=== PATIENT | female | born 1950 | race African-American/Black ===

== ENCOUNTER 2018-09-27 09:37 | Inpatient (IN) | payer BC, MEDICAID ==
[~2018-09-27] VITALS: Ht 160 cm; Wt 85.9 kg
[2018-09-27] MEDS ORDERED: SODIUM CHLORIDE 0.9% 1,000 ML IV ONE (11:11)
[2018-09-27] MEDS ORDERED: ONDANSETRON HCL 4MG/2ML INJ IV STA (11:11)
[2018-09-27] MEDS ORDERED: MORPHINE SULFATE 4 MG/ML CPJ (NOT FOR IM USE) IV STA (11:11)
[2018-09-27 13:06] LABS: CLARITY URINE CLOUDY (CLEAR); COLOR URINE ORANGE (YELLOW); KETONES URINE 1+ (NEGATIVE); LEUKOCYTE ESTERASE URINE 2+ (NEGATIVE); NITRITE URINE POSITIVE (NEGATIVE); OCCULT BLOOD URINE NEGATIVE (NEGATIVE); PH URINE 5.5 (4.5-8.0); PROTEIN URINE 1+ (NEGATIVE); SPECIFIC GRAVITY URINE 1.026 (1.005-1.030)
[2018-09-27 13:34] LABS: BASOPHILS % 0.5 % (0.0-2.0); EOSINOPHILS % 0.1 % (0.0-5.0); HEMATOCRIT. 38.7 % (36.0-48.0); HEMOGLOBIN. 12.8 g/dL (12.0-16.0); LYMPHOCYTES % 7.7 % (20.0-50.0); MEAN CORPUSCULAR HEMOGLOBIN 27.5 pg (28.0-32.0); MEAN CORPUSCULAR VOLUME 82.9 fL (81.0-99.0); MONOCYTES % 8.3 % (2.0-8.0); NEUTROPHILS % 83.4 % (40.0-76.0); PLATELET 232 x1000/uL (130-400); RED BLOOD CELL COUNT 4.67 mill/uL (4.2-5.4); RED CELL DISTRIBUTION WIDTH 15.4 % (11.6-14.6)
[2018-09-27 13:41] LABS: CHLORIDE 101 mEq/L (98-107)
[2018-09-27 13:42] LABS: INR 1.2; PROTHROMBIN TIME 12.2 sec (9.1-11.1)
[2018-09-27] MEDS ORDERED: KETOROLAC 15MG/ML VIAL IV ONE (13:45)
[2018-09-27] MEDS ORDERED: IOHEXOL-300 100 ML BOTTLE ONE (14:46)
[2018-09-27] MEDS ORDERED: METRONIDAZOLE 500 MG PREMIX 100 ML IV ONE (17:30)
[2018-09-27] MEDS ORDERED: PIPERACILLIN SODIUM/TAZOBACTAM 4.5 G in DEXT 5% WATER 100 ML IV SCH (17:30)
[2018-09-28] VITALS (7 sets, daily range): BP systolic 126–176; BP diastolic 74–96
[2018-09-28] MEDS ORDERED: ONDANSETRON HCL 4MG/2ML INJ IV PRN (00:45)
[2018-09-28] MEDS ORDERED: ACETAMINOPHEN 325MG TABLET PO PRN (00:45)
[2018-09-28] MEDS ORDERED: DEXTROSE 50% WATER 50ML SYRINGE IV PRN (01:00)
[2018-09-28] MEDS: DEXT 5%/0.45% NACL 1000ML 1,000 ML IV SCH ×3 (03:38→22:08)
[2018-09-28] MEDS: PIPERACILLIN/TAZ 3.375G PREMIX 50 ML IV SCH (06:49)
[2018-09-28] MEDS: BLOOD SUGAR DIAGNOSTIC STRIP TEST SCH ×2 (06:55→11:45)
[2018-09-28] MEDS ORDERED: INSULIN LISPRO 100 UNITS/ML SUBCUT SCH (07:15)
[2018-09-28] MEDS: PANTOPRAZOLE SODIUM 40 MG/VIAL IV SCH (09:15)
[2018-09-28] MEDS ORDERED: METOPROLOL TARTRATE 25MG TABLET PO NR (11:00)
[2018-09-28 16:25] LABS: HEMATOCRIT 35.7 % (36.0-48.0); HEMOGLOBIN 11.4 g/dL (12.0-16.0); MEAN CORPUSCULAR HEMOGLOBIN 26.5 pg (28.0-32.0); MEAN CORPUSCULAR VOLUME 83.3 fL (81.0-99.0); PLATELET 242 x1000/uL (130-400); RED BLOOD CELL COUNT 4.28 mill/uL (4.2-5.4); RED CELL DISTRIBUTION WIDTH 15.8 % (11.6-14.6)
[2018-09-28 16:26] LABS: CHLORIDE 105 mEq/L (98-107)
[2018-09-28] MEDS ORDERED: INSULIN GLARGINE UD 100 UNITS/ML SYR SUBCUT SCH (16:30)
[2018-09-28] MEDS ORDERED: DIPHENHYDRAMINE 50MG/ML VIAL IV PRN (19:15)
[2018-09-28] MEDS: METOPROLOL TARTRATE 25MG TABLET PO SCH (22:08)
[2018-09-29] VITALS: BP 150/92
[2018-09-29] MEDS: INSULIN LISPRO 100 UNITS/ML SUBCUT SCH ×5 (00:46→21:24)
[2018-09-29 04:00] VITALS: BP 160/87
[2018-09-29] MEDS: DEXT 5%/0.45% NACL 1000ML 1,000 ML IV SCH (06:28)
[2018-09-29] MEDS: BLOOD SUGAR DIAGNOSTIC STRIP TEST SCH ×4 (06:45→21:00)
[2018-09-29 08:00] VITALS: BP 156/91
[2018-09-29] MEDS: METOPROLOL TARTRATE 25MG TABLET PO SCH ×3 (09:00→21:09)
[2018-09-29] MEDS: PANTOPRAZOLE SODIUM 40 MG/VIAL IV SCH (09:08)
[2018-09-29 10:53] LABS: HEMATOCRIT 35.2 % (36.0-48.0); HEMOGLOBIN 11.5 g/dL (12.0-16.0); MEAN CORPUSCULAR HEMOGLOBIN 27.1 pg (28.0-32.0); PLATELET 264 x1000/uL (130-400); RED BLOOD CELL COUNT 4.24 mill/uL (4.2-5.4); RED CELL DISTRIBUTION WIDTH 15.8 % (11.6-14.6)
[2018-09-29 11:51] LABS: CHLORIDE 105 mEq/L (98-107)
[2018-09-29 12:00] VITALS: BP 157/92
[2018-09-29 12:07] LABS: LDL CHOLESTEROL 91 mg/dL (5-100); T4 FREE 1.37 ng/dL (0.76-1.46)
[2018-09-29 12:08] LABS: HDL CHOLESTEROL 47 mg/dL (40-59)
[2018-09-29] MEDS ORDERED: IBUPROFEN 200MG TABLET PO PRN (12:15)
[2018-09-29] MEDS: PIPERACILLIN/TAZ 3.375G PREMIX 50 ML IV SCH ×2 (14:00→21:09)
[2018-09-29 16:00] VITALS: BP 164/95
[2018-09-29] MEDS: SODIUM CHLORIDE 0.45% 1,000 ML IV SCH (17:29)
[2018-09-29 20:00] VITALS: BP 175/101
[2018-09-29] MEDS: MORPHINE SULFATE 4 MG/ML CPJ (NOT FOR IM USE) IV PRN (21:11)
[2018-09-30] VITALS: BP 119/65
[2018-09-30] MEDS: SODIUM CHLORIDE 0.45% 1,000 ML IV SCH ×2 (01:15→14:50)
[2018-09-30 04:00] VITALS: BP 105/63
[2018-09-30] MEDS: PIPERACILLIN/TAZ 3.375G PREMIX 50 ML IV SCH ×3 (05:09→21:16)
[2018-09-30] MEDS: BLOOD SUGAR DIAGNOSTIC STRIP TEST SCH ×4 (06:45→20:44)
[2018-09-30] MEDS: INSULIN LISPRO 100 UNITS/ML SUBCUT SCH ×4 (07:15→21:14)
[2018-09-30 08:00] VITALS: BP 135/79
[2018-09-30] MEDS: PANTOPRAZOLE SODIUM 40 MG/VIAL IV SCH (09:37)
[2018-09-30] MEDS: METOPROLOL TARTRATE 25MG TABLET PO SCH ×2 (09:37→20:47)
[2018-09-30 10:49] LABS: HEMATOCRIT 32.6 % (36.0-48.0); HEMOGLOBIN 10.8 g/dL (12.0-16.0); MEAN CORPUSCULAR HEMOGLOBIN 27.6 pg (28.0-32.0); MEAN CORPUSCULAR VOLUME 83.5 fL (81.0-99.0); PLATELET 250 x1000/uL (130-400); RED BLOOD CELL COUNT 3.91 mill/uL (4.2-5.4); RED CELL DISTRIBUTION WIDTH 15.4 % (11.6-14.6)
[2018-09-30 11:58] LABS: CHLORIDE 105 mEq/L (98-107)
[2018-09-30 12:00] VITALS: BP 132/61
[2018-09-30] MEDS ORDERED: POTASSIUM CHLORIDE 20MEQ TABLET SR PO NR (15:00)
[2018-09-30 16:00] VITALS: BP 159/91
[2018-09-30 20:00] VITALS: BP 178/96
[2018-09-30] MEDS: ENOXAPARIN 30MG/0.3ML SYR SUBCUT SCH (20:48)
[2018-09-30] MEDS: MORPHINE SULFATE 4 MG/ML CPJ (NOT FOR IM USE) IV PRN (21:15)
[2018-10-01] VITALS (7 sets, daily range): BP systolic 141–172; BP diastolic 79–93
[2018-10-01] MEDS ORDERED: METOPROLOL TARTRATE 25MG TABLET PO SCH (04:00)
[2018-10-01] MEDS: SODIUM CHLORIDE 0.45% 1,000 ML IV SCH (04:39)
[2018-10-01] MEDS: PIPERACILLIN/TAZ 3.375G PREMIX 50 ML IV SCH ×2 (05:35→15:16)
[2018-10-01] MEDS: INSULIN LISPRO 100 UNITS/ML SUBCUT SCH ×3 (06:15→17:09)
[2018-10-01] MEDS: BLOOD SUGAR DIAGNOSTIC STRIP TEST SCH ×3 (06:15→17:09)
[2018-10-01] MEDS: PANTOPRAZOLE SODIUM 40 MG/VIAL IV SCH (09:42)
[2018-10-01] MEDS: ENOXAPARIN 30MG/0.3ML SYR SUBCUT SCH (09:42)
[2018-10-01 09:44] LABS: HEMATOCRIT 31.9 % (36.0-48.0); HEMOGLOBIN 10.5 g/dL (12.0-16.0); MEAN CORPUSCULAR HEMOGLOBIN 27.4 pg (28.0-32.0); MEAN CORPUSCULAR VOLUME 83.4 fL (81.0-99.0); PLATELET 268 x1000/uL (130-400); RED BLOOD CELL COUNT 3.82 mill/uL (4.2-5.4); RED CELL DISTRIBUTION WIDTH 15.4 % (11.6-14.6)
[2018-10-01 10:41] LABS: CHLORIDE 105 mEq/L (98-107)
== END 2018-10-01 19:50 | DRG 871 ==
LOC: ER 09:56 → 5WST 17:57 → ENRESERV 19:51
PROVIDERS: ADMIT Internal Medicine; ATTEND Internal Medicine
DX: A41.9 Sepsis, unspecified organism (principal); K85.90 Acute pancreatitis without necrosis or infection, unspecified; K80.00 Calculus of gallbladder with acute cholecystitis without obstruction; C78.7 Secondary malignant neoplasm of liver and intrahepatic bile duct; D68.59 Other primary thrombophilia; N39.0 Urinary tract infection, site not specified; E86.0 Dehydration; E11.9 Type 2 diabetes mellitus without complications; I10 Essential (primary) hypertension; E80.6 Other disorders of bilirubin metabolism; J44.9 Chronic obstructive pulmonary disease, unspecified; E66.01 Morbid (severe) obesity due to excess calories; Z68.33 Body mass index [BMI] 33.0-33.9, adult; Z85.038 Personal history of other malignant neoplasm of large intestine; Z91.19 Patient's noncompliance with other medical treatment and regimen; K52.9 Noninfective gastroenteritis and colitis, unspecified
CPT/HCPCS: 36415; 71045; 74177; 74181; 76705; 80048; 80061; 80076; 82378; 82962; 83036; 84439; 84443; 85027; 86301; 93306; 93970; 96361; 96365; 96368; 96375; 97162; 99285; C9113; J1650; J1815; J1885; J2270; J2405; J2543; J3490; J7030; J7060; Q9967

== ENCOUNTER 2019-06-02 14:18 | Inpatient (IN) | payer BC, MEDICAID ==
[~2019-06-02] VITALS: Ht 154.9 cm; Wt 65.8 kg
[2019-06-02] MEDS ORDERED: SODIUM CHLORIDE 0.9% 500 ML IV ONE (16:45)
[2019-06-02] MEDS ORDERED: ACETAMINOPHEN 325MG TABLET PO ONE (16:45)
[2019-06-02 17:53] LABS: CHLORIDE 109 mEq/L (98-107)
[2019-06-02 17:58] LABS: BASOPHILS % 0.6 % (0.0-2.0); EOSINOPHILS % 0.4 % (0.0-5.0); HEMATOCRIT. 35.5 % (36.0-48.0); HEMOGLOBIN. 11.9 g/dL (12.0-16.0); LYMPHOCYTES % 24.1 % (20.0-50.0); MEAN CORPUSCULAR HEMOGLOBIN 31.4 pg (28.0-32.0); MEAN CORPUSCULAR VOLUME 93.8 fL (81.0-99.0); MEAN PLATELET VOLUME 8.9 fl (7.4-10.4); MONOCYTES % 9.3 % (2.0-8.0); NEUTROPHILS % 65.6 % (40.0-76.0); PLATELET 187 x1000/uL (130-400); RED BLOOD CELL COUNT 3.79 mill/uL (4.2-5.4); RED CELL DISTRIBUTION WIDTH 16.9 % (11.6-14.6)
[2019-06-02] MEDS ORDERED: CLONIDINE 0.2MG TABLET PO ONE ×2 (20:00→20:15)
[2019-06-02] MEDS ORDERED: POTASSIUM CHLORIDE 20MEQ TABLET SR PO ONE (20:15)
[2019-06-02 20:31] LABS: CLARITY URINE CLOUDY (CLEAR); COLOR URINE RED (YELLOW); KETONES URINE 1+ (NEGATIVE); LEUKOCYTE ESTERASE URINE 2+ (NEGATIVE); NITRITE URINE POSITIVE (NEGATIVE); OCCULT BLOOD URINE 2+ (NEGATIVE); PH URINE 5.5 (4.5-8.0); PROTEIN URINE 1+ (NEGATIVE); SPECIFIC GRAVITY URINE 1.037 (1.005-1.030)
[2019-06-02 21:07] LABS: *AMPHETAMINES SCREEN URINE NEGATIVE (NEGATIVE); *BARBITURATES SCREEN URINE NEGATIVE (NEGATIVE)
[2019-06-02 21:08] LABS: *BENZODIAZEPINES SCREEN URINE NEGATIVE (NEGATIVE); *COCAINE SCREEN URINE NEGATIVE (NEGATIVE); METHADONE URINE SCREEN NEGATIVE (NEGATIVE); OPIATES URINE SCREEN NEGATIVE (NEGATIVE); PHENCYCLIDINE URINE SCREEN NEGATIVE (NEGATIVE)
[2019-06-02 21:09] LABS: CANNABINOID URINE SCREEN NEGATIVE (NEGATIVE)
[2019-06-02] MEDS ORDERED: MORPHINE SULFATE 2 MG/ML CPJ (NOT FOR IM USE) IV PRN (23:30)
[2019-06-02 23:59] VITALS: BP 142/88
[2019-06-03] MEDS ORDERED: ACET-2178 MT (00:47)
[2019-06-03 08:00] VITALS: BP_SYST 116; BP_SYST 121; BP_SYST 87; BP_DIAS 55; BP_DIAS 69; BP_DIAS 78
[2019-06-03 11:24] LABS: BG BASE EXCESS 0.8 mmol/L (-2.0-2.0); BG CARBOXYHEMOGLOBIN 0.3 % (0.5-1.5); BG DEOXYHEMOGLOBIN 1.7 % (0.0-5.0); BG FRACTION INSPIRED OXYGEN 21; BG HCO3 ACT 23.3 mmol/L (22.0-26.0); BG METHEMOGLOBIN 0.2 % (0.0-1.5); BG OXYGEN SATURATION 98.3 % (92.0-98.5); BG OXYHEMOGLOBIN 97.8 % (94.0-97.0); BG PCO2 30.7 mmHg (35.0-45.0); BG PH 7.499 (7.350-7.450); BG PO2 107.3 mmHg (75.0-100.0); BG SAMPLE SITE RIGHT BRACHIAL; BG TOTAL HEMOGLOBIN 11.8 g/dL (12.0-18.0); BG VENT MODE ROOM AIR
[2019-06-03 12:00] VITALS: BP 129/72
[2019-06-03] MEDS ORDERED: IOHEXOL-300 100 ML BOTTLE ONE (15:07)
[2019-06-03 16:00] VITALS: BP 148/85
[2019-06-03] MEDS ORDERED: IPRATROPIUM/ALBUTEROL 0.5-3(2.5)MG/3ML NEB HHN PRN (16:45)
[2019-06-03] MEDS ORDERED: LACTULOSE 20G/30ML UDC PO PRN (16:45)
[2019-06-03] MEDS ORDERED: DEXTROSE 50% WATER 50ML SYRINGE IV PRN (16:45)
[2019-06-03] MEDS ORDERED: DIPHENHYDRAMINE 50MG/ML VIAL IV PRN (16:45)
[2019-06-03] MEDS: BLOOD SUGAR DIAGNOSTIC STRIP TEST SCH ×2 (17:05→21:00)
[2019-06-03] MEDS: INSULIN LISPRO 100 UNITS/ML SUBCUT SCH ×2 (17:05→21:00)
[2019-06-03] MEDS: DEXTROSE 5% WATER 1,000 ML IV SCH (17:27)
[2019-06-03] MEDS: PIPERACILLIN/TAZ 3.375G PREMIX 50 ML IV SCH (18:00)
[2019-06-03 18:06] LABS: CHLORIDE 110 mEq/L (98-107)
[2019-06-03 18:07] LABS: BASOPHILS % 0.5 % (0.0-2.0); HEMATOCRIT. 35.3 % (36.0-48.0); HEMOGLOBIN. 11.7 g/dL (12.0-16.0); LYMPHOCYTES % 23.5 % (20.0-50.0); MEAN CORPUSCULAR HEMOGLOBIN 31.4 pg (28.0-32.0); MEAN CORPUSCULAR VOLUME 94.6 fL (81.0-99.0); MEAN PLATELET VOLUME 9.9 fl (7.4-10.4); MONOCYTES % 9.4 % (2.0-8.0); NEUTROPHILS % 65.6 % (40.0-76.0); PLATELET 174 x1000/uL (130-400); RED BLOOD CELL COUNT 3.73 mill/uL (4.2-5.4)
[2019-06-03 18:12] LABS: INR 1.1; PROTHROMBIN TIME 11.4 sec (9.6-11.0)
[2019-06-03 20:00] VITALS: BP_SYST 138; BP_SYST 151; BP_SYST 158; BP_DIAS 80; BP_DIAS 84; BP_DIAS 94
[2019-06-03] MEDS: FAMOTIDINE 20MG/2ML VIAL IV SCH (21:01)
[2019-06-04] VITALS: BP 155/91
[2019-06-04] MEDS: PIPERACILLIN/TAZ 3.375G PREMIX 50 ML IV SCH ×3 (00:54→12:16)
[2019-06-04] MEDS: INSULIN LISPRO 100 UNITS/ML SUBCUT SCH ×4 (06:19→20:42)
[2019-06-04] MEDS: BLOOD SUGAR DIAGNOSTIC STRIP TEST SCH ×4 (06:19→20:42)
[2019-06-04 08:00] VITALS: BP_SYST 130; BP_SYST 151; BP_SYST 158; BP_DIAS 82; BP_DIAS 83; BP_DIAS 90
[2019-06-04] MEDS: DEXTROSE 5% WATER 1,000 ML IV SCH (09:22)
[2019-06-04 12:00] VITALS: BP 158/93
[2019-06-04 16:00] VITALS: BP 144/87
[2019-06-04] MEDS: PIPERACILLIN/TAZOBACTAM 3.375 G in DEXT 5% WATER 100 ML IV SCH (17:07)
[2019-06-04 20:00] VITALS: BP_SYST 119; BP_SYST 136; BP_SYST 143; BP_DIAS 79; BP_DIAS 81; BP_DIAS 90
[2019-06-04] MEDS: FAMOTIDINE 20MG/2ML VIAL IV SCH (20:43)
[2019-06-04 23:40] LABS: BASOPHILS % 0.5 % (0.0-2.0); EOSINOPHILS % 0.2 % (0.0-5.0); HEMATOCRIT. 35.2 % (36.0-48.0); HEMOGLOBIN. 11.9 g/dL (12.0-16.0); LYMPHOCYTES % 16.6 % (20.0-50.0); MEAN CORPUSCULAR HEMOGLOBIN 31.8 pg (28.0-32.0); MEAN CORPUSCULAR VOLUME 93.9 fL (81.0-99.0); MEAN PLATELET VOLUME 9.3 fl (7.4-10.4); MONOCYTES % 10.1 % (2.0-8.0); NEUTROPHILS % 72.6 % (40.0-76.0); PLATELET 149 x1000/uL (130-400); RED BLOOD CELL COUNT 3.75 mill/uL (4.2-5.4); RED CELL DISTRIBUTION WIDTH 16.5 % (11.6-14.6)
[2019-06-04 23:43] LABS: CHLORIDE 108 mEq/L (98-107)
[2019-06-05] VITALS: BP 128/86
[2019-06-05] MEDS: DEXTROSE 5% WATER 1,000 ML IV SCH ×2 (00:27→18:20)
[2019-06-05] MEDS: PIPERACILLIN/TAZOBACTAM 3.375 G in DEXT 5% WATER 100 ML IV SCH ×5 (00:27→23:46)
[2019-06-05 04:00] VITALS: BP 164/97
[2019-06-05] MEDS: HYDRALAZINE 20MG/ML VIAL IV PRN ×2 (05:39→23:54)
[2019-06-05] MEDS: BLOOD SUGAR DIAGNOSTIC STRIP TEST SCH ×4 (07:10→21:16)
[2019-06-05] MEDS: INSULIN LISPRO 100 UNITS/ML SUBCUT SCH ×5 (07:14→21:00)
[2019-06-05 08:00] VITALS: BP 122/79
[2019-06-05 11:46] LABS: BASOPHILS % 0.5 % (0.0-2.0); EOSINOPHILS % 0.1 % (0.0-5.0); HEMATOCRIT. 32.2 % (36.0-48.0); HEMOGLOBIN. 10.6 g/dL (12.0-16.0); LYMPHOCYTES % 18.1 % (20.0-50.0); MEAN CORPUSCULAR HEMOGLOBIN 31.6 pg (28.0-32.0); MEAN CORPUSCULAR VOLUME 95.7 fL (81.0-99.0); MEAN PLATELET VOLUME 9.5 fl (7.4-10.4); MONOCYTES % 11.1 % (2.0-8.0); NEUTROPHILS % 70.2 % (40.0-76.0); PLATELET 131 x1000/uL (130-400); RED BLOOD CELL COUNT 3.36 mill/uL (4.2-5.4); RED CELL DISTRIBUTION WIDTH 16.7 % (11.6-14.6)
[2019-06-05 12:00] VITALS: BP 121/68
[2019-06-05] MEDS ORDERED: POTASSIUM CHLORIDE INJ 40 MEQ in DEXT 5% WATER 250 ML IV SCH (12:00)
[2019-06-05 14:32] LABS: CHLORIDE 107 mEq/L (98-107)
[2019-06-05] MEDS ORDERED: FENTANYL CITRATE/PF 50MCG/ML 2ML VIAL ONE (16:05)
[2019-06-05] MEDS ORDERED: MIDAZOLAM HCL 5 MG/5 ML VIAL ONE (16:05)
[2019-06-05] MEDS ORDERED: MIDAZOLAM HCL 5 MG/5 ML VIAL IV PRN (16:16)
[2019-06-05 20:00] VITALS: BP_SYST 121; BP_SYST 140; BP_SYST 150; BP_DIAS 79; BP_DIAS 83; BP_DIAS 86
[2019-06-05] MEDS: FAMOTIDINE 20MG/2ML VIAL IV SCH (21:17)
[2019-06-06] VITALS: BP 171/99
[2019-06-06 04:00] VITALS: BP 134/76
[2019-06-06] MEDS: PIPERACILLIN/TAZOBACTAM 3.375 G in DEXT 5% WATER 100 ML IV SCH ×3 (06:00→17:59)
[2019-06-06] MEDS: BLOOD SUGAR DIAGNOSTIC STRIP TEST SCH ×4 (07:00→21:27)
[2019-06-06] MEDS: INSULIN LISPRO 100 UNITS/ML SUBCUT SCH ×4 (07:00→21:00)
[2019-06-06 08:00] VITALS: BP 119/69
[2019-06-06] MEDS: DEXTROSE 5% WATER 1,000 ML IV SCH (10:48)
[2019-06-06 12:00] VITALS: BP 121/71
[2019-06-06 16:05] VITALS: BP 137/76
[2019-06-06 16:06] LABS: INR 1.1; PROTHROMBIN TIME 11.7 sec (9.6-11.0)
[2019-06-06 16:07] LABS: HEMATOCRIT 35.2 % (36.0-48.0); HEMOGLOBIN 11.8 g/dL (12.0-16.0); MEAN CORPUSCULAR HEMOGLOBIN 31.4 pg (28.0-32.0); MEAN CORPUSCULAR VOLUME 93.9 fL (81.0-99.0); PLATELET 156 x1000/uL (130-400); RED BLOOD CELL COUNT 3.74 mill/uL (4.2-5.4); RED CELL DISTRIBUTION WIDTH 16.9 % (11.6-14.6)
[2019-06-06 16:12] LABS: CHLORIDE 105 mEq/L (98-107)
[2019-06-06 20:00] VITALS: BP_SYST 148; BP_SYST 154; BP_DIAS 88; BP_DIAS 91
[2019-06-06] MEDS: FAMOTIDINE 20MG/2ML VIAL IV SCH (21:20)
[2019-06-07] VITALS: BP 145/85
[2019-06-07] MEDS: PIPERACILLIN/TAZOBACTAM 3.375 G in DEXT 5% WATER 100 ML IV SCH ×4 (00:31→17:37)
[2019-06-07 04:00] VITALS: BP 141/79
[2019-06-07] MEDS: INSULIN LISPRO 100 UNITS/ML SUBCUT SCH ×4 (06:33→20:40)
[2019-06-07] MEDS: DEXTROSE 5% WATER 1,000 ML IV SCH ×2 (06:33→20:35)
[2019-06-07] MEDS: BLOOD SUGAR DIAGNOSTIC STRIP TEST SCH ×4 (06:33→20:40)
[2019-06-07 07:02] LABS: HEMATOCRIT 35.4 % (36.0-48.0); HEMOGLOBIN 12.1 g/dL (12.0-16.0); MEAN CORPUSCULAR HEMOGLOBIN 31.6 pg (28.0-32.0); MEAN CORPUSCULAR VOLUME 92.7 fL (81.0-99.0); PLATELET 187 x1000/uL (130-400); RED BLOOD CELL COUNT 3.82 mill/uL (4.2-5.4); RED CELL DISTRIBUTION WIDTH 16.9 % (11.6-14.6)
[2019-06-07 07:10] LABS: CHLORIDE 105 mEq/L (98-107)
[2019-06-07 08:00] VITALS: BP 123/85
[2019-06-07] MEDS ORDERED: SODIUM BICARBONATE 4% (2.4MEQ) 5ML VIAL IV ONE (08:02)
[2019-06-07] MEDS ORDERED: IOHEXOL-300 50 ML BOTTLE IV ONE (08:02)
[2019-06-07] MEDS ORDERED: LIDOCAINE HCL 1% 20ML VIAL (Pyxis) INJ ONE (08:03)
[2019-06-07] MEDS ORDERED: ALBUMIN HUMAN 12.5G/250ML (5%) IV NR (09:30)
[2019-06-07] MEDS ORDERED: MIDAZOLAM HCL 2 MG/2 ML VIAL ONE (09:30)
[2019-06-07] MEDS ORDERED: PROPOFOL 200MG/20ML VIAL IV ONE (09:30)
[2019-06-07] MEDS ORDERED: FENTANYL CITRATE/PF 50MCG/ML 2ML VIAL ONE (09:30)
[2019-06-07] MEDS ORDERED: GLYCOPYRROLATE 0.2 MG/ML 2ML VIAL ONE (09:30)
[2019-06-07] MEDS ORDERED: LIDOCAINE HCL/PF 1% 10 MG/ML 5ML VIAL ONE (09:31)
[2019-06-07] MEDS ORDERED: METOCLOPRAMIDE HCL 10MG/2ML VIAL ONE (09:31)
[2019-06-07] MEDS ORDERED: ONDANSETRON HCL 4MG/2ML INJ ONE (09:31)
[2019-06-07] MEDS ORDERED: SUCCINYLCHOLINE CHLORIDE 200MG/10ML IV ONE (09:31)
[2019-06-07] MEDS ORDERED: SODIUM CHLORIDE 0.9% 1,000 ML IV ONE (10:36)
[2019-06-07] MEDS ORDERED: MEPERIDINE HCL/PF 25MG/ML CPJ IV PRN (10:45)
[2019-06-07] MEDS ORDERED: HYDROMORPHONE HCL/PF 2MG/ML CPJ IV PRN (10:45)
[2019-06-07] MEDS ORDERED: ONDANSETRON HCL 4MG/2ML INJ IV PRN (10:45)
[2019-06-07] MEDS ORDERED: POTASSIUM CHLORIDE INJ 40 MEQ in DEXT 5% WATER 250 ML IV NR (11:00)
[2019-06-07] MEDS: HYDRALAZINE 20MG/ML VIAL IV PRN (11:18)
[2019-06-07 12:00] VITALS: BP 125/66
[2019-06-07 16:00] VITALS: BP 173/87
[2019-06-07 20:00] VITALS: BP 121/65
[2019-06-07] MEDS: FAMOTIDINE 20MG/2ML VIAL IV SCH (20:35)
[2019-06-08] VITALS: BP 133/70
[2019-06-08] MEDS: PIPERACILLIN/TAZOBACTAM 3.375 G in DEXT 5% WATER 100 ML IV SCH ×3 (00:16→13:02)
[2019-06-08 04:00] VITALS: BP 136/75
[2019-06-08] MEDS: BLOOD SUGAR DIAGNOSTIC STRIP TEST SCH ×4 (06:38→20:39)
[2019-06-08] MEDS: INSULIN LISPRO 100 UNITS/ML SUBCUT SCH ×4 (06:38→20:39)
[2019-06-08 06:43] LABS: HEMATOCRIT 32.3 % (36.0-48.0); HEMOGLOBIN 11.2 g/dL (12.0-16.0); MEAN CORPUSCULAR HEMOGLOBIN 31.7 pg (28.0-32.0); MEAN CORPUSCULAR VOLUME 91.7 fL (81.0-99.0); PLATELET 185 x1000/uL (130-400); RED BLOOD CELL COUNT 3.52 mill/uL (4.2-5.4); RED CELL DISTRIBUTION WIDTH 16.5 % (11.6-14.6)
[2019-06-08 06:48] LABS: CHLORIDE 106 mEq/L (98-107)
[2019-06-08 08:00] VITALS: BP 145/86
[2019-06-08 12:00] VITALS: BP 157/88
[2019-06-08] MEDS: DEXTROSE 5% WATER 1,000 ML IV SCH (13:15)
[2019-06-08 16:00] VITALS: BP 143/81
[2019-06-08 20:00] VITALS: BP 187/109
[2019-06-08] MEDS: FAMOTIDINE 20MG/2ML VIAL IV SCH (20:26)
[2019-06-08] MEDS: HYDRALAZINE 20MG/ML VIAL IV PRN (20:29)
[2019-06-09] VITALS: BP_SYST 126; BP_SYST 127; BP_DIAS 61; BP_DIAS 62
[2019-06-09 04:00] VITALS: BP 141/76
[2019-06-09 05:57] LABS: HEMATOCRIT 32.9 % (36.0-48.0); HEMOGLOBIN 11.4 g/dL (12.0-16.0); MEAN CORPUSCULAR HEMOGLOBIN 31.3 pg (28.0-32.0); MEAN CORPUSCULAR VOLUME 90.4 fL (81.0-99.0); PLATELET 208 x1000/uL (130-400); RED BLOOD CELL COUNT 3.64 mill/uL (4.2-5.4); RED CELL DISTRIBUTION WIDTH 16.5 % (11.6-14.6)
[2019-06-09 06:07] LABS: CHLORIDE 104 mEq/L (98-107)
[2019-06-09] MEDS: PIPERACILLIN/TAZOBACTAM 3.375 G in DEXT 5% WATER 100 ML IV SCH ×4 (06:11→23:57)
[2019-06-09] MEDS: INSULIN LISPRO 100 UNITS/ML SUBCUT SCH (06:27)
[2019-06-09] MEDS: BLOOD SUGAR DIAGNOSTIC STRIP TEST SCH (06:27)
[2019-06-09 08:00] VITALS: BP 143/79
[2019-06-09] MEDS ORDERED: HYDROCODONE/ACETAMINOPHEN 5/325MG TABLET PO PRN (09:00)
[2019-06-09] MEDS: MORPHINE SULFATE 15MG TABLET SR PO SCH ×2 (09:17→20:33)
[2019-06-09] MEDS: ACETAMINOPHEN 325MG TABLET PO PRN ×2 (09:17→17:20)
[2019-06-09] MEDS: ONDANSETRON HCL 4MG/2ML INJ IV PRN ×2 (09:17→17:19)
[2019-06-09] MEDS: DEXTROSE 5% WATER 1,000 ML IV SCH ×2 (09:24→23:56)
[2019-06-09] MEDS ORDERED: POTASSIUM CHLORIDE 20MEQ TABLET SR PO NR (10:15)
[2019-06-09 11:16] LABS: CLARITY URINE CLOUDY (CLEAR); COLOR URINE DARK YELLOW (YELLOW); KETONES URINE NEGATIVE (NEGATIVE); LEUKOCYTE ESTERASE URINE 1+ (NEGATIVE); NITRITE URINE POSITIVE (NEGATIVE); OCCULT BLOOD URINE NEGATIVE (NEGATIVE); PH URINE 5.5 (4.5-8.0); PROTEIN URINE 2+ (NEGATIVE); SPECIFIC GRAVITY URINE 1.038 (1.005-1.030); UROBILINOGEN URINE 0.2 E.U./dL (0.2-1.0)
[2019-06-09 12:00] VITALS: BP 136/68
[2019-06-09 16:00] VITALS: BP 151/82
[2019-06-09] MEDS: METOCLOPRAMIDE HCL 10MG/2ML VIAL IV SCH ×2 (17:56→23:55)
[2019-06-09 20:00] VITALS: BP 173/93
[2019-06-09] MEDS: FAMOTIDINE 20MG/2ML VIAL IV SCH (20:33)
[2019-06-10] VITALS (7 sets, daily range): BP systolic 128–143; BP diastolic 69–85
[2019-06-10] MEDS: PIPERACILLIN/TAZOBACTAM 3.375 G in DEXT 5% WATER 100 ML IV SCH ×3 (05:16→19:20)
[2019-06-10] MEDS: METOCLOPRAMIDE HCL 10MG/2ML VIAL IV SCH ×3 (05:17→19:20)
[2019-06-10 07:37] LABS: BASOPHILS % 0.3 % (0.0-2.0); EOSINOPHILS % 0.3 % (0.0-5.0); HEMATOCRIT. 31.1 % (36.0-48.0); HEMOGLOBIN. 10.7 g/dL (12.0-16.0); LYMPHOCYTES % 8.2 % (20.0-50.0); MEAN CORPUSCULAR HEMOGLOBIN 31.7 pg (28.0-32.0); MEAN PLATELET VOLUME 8.8 fl (7.4-10.4); MONOCYTES % 7.7 % (2.0-8.0); NEUTROPHILS % 83.5 % (40.0-76.0); PLATELET 205 x1000/uL (130-400); RED BLOOD CELL COUNT 3.38 mill/uL (4.2-5.4); RED CELL DISTRIBUTION WIDTH 16.5 % (11.6-14.6)
[2019-06-10 07:47] LABS: CHLORIDE 101 mEq/L (98-107)
[2019-06-10] MEDS: MORPHINE SULFATE 15MG TABLET SR PO SCH ×2 (09:00→20:30)
[2019-06-10] MEDS: FAMOTIDINE 20MG/2ML VIAL IV SCH (20:29)
[2019-06-11] VITALS: BP 153/78
[2019-06-11 04:00] VITALS: BP 147/87
[2019-06-11] MEDS: METOCLOPRAMIDE HCL 10MG/2ML VIAL IV SCH ×3 (05:54→12:00)
[2019-06-11 08:00] VITALS: BP 129/88
[2019-06-11] MEDS: MORPHINE SULFATE 15MG TABLET SR PO SCH (09:00)
[2019-06-11 12:33] VITALS: BP 147/89
[2019-06-11 13:26] LABS: HEMATOCRIT 32.3 % (36.0-48.0); HEMOGLOBIN 10.9 g/dL (12.0-16.0); MEAN CORPUSCULAR HEMOGLOBIN 31.1 pg (28.0-32.0); MEAN CORPUSCULAR VOLUME 92.1 fL (81.0-99.0); PLATELET 259 x1000/uL (130-400); RED BLOOD CELL COUNT 3.51 mill/uL (4.2-5.4); RED CELL DISTRIBUTION WIDTH 16.2 % (11.6-14.6)
[2019-06-11 13:30] LABS: CHLORIDE 101 mEq/L (98-107)
[2019-06-11 14:34] VITALS: BP 147/89
== END 2019-06-11 16:32 | DRG 391 ==
LOC: ER 14:18 → 8WST 20:16 → EDBEDREQTM 20:19 → EDBEDREQ 20:19 → ENRESERV 20:34
PROVIDERS: ADMIT Internal Medicine; ATTEND Internal Medicine
PROC: 0DJ08ZZ Inspection of Upper Intestinal Tract, Via Natural or Artificial Opening Endoscopic (ICD-10-PCS; principal; 2019-06-05)
PROC: 0F9930Z Drainage of Common Bile Duct with Drainage Device, Percutaneous Approach (ICD-10-PCS; 2019-06-07)
PROC: BF101ZZ Fluoroscopy of Bile Ducts using Low Osmolar Contrast (ICD-10-PCS; 2019-06-07)
DX: K29.70 Gastritis, unspecified, without bleeding (principal); K83.1 Obstruction of bile duct; C78.7 Secondary malignant neoplasm of liver and intrahepatic bile duct; E87.1 Hypo-osmolality and hyponatremia; N39.0 Urinary tract infection, site not specified; E87.0 Hyperosmolality and hypernatremia; C18.9 Malignant neoplasm of colon, unspecified; E46 Unspecified protein-calorie malnutrition; D64.9 Anemia, unspecified; E87.5 Hyperkalemia; R74.0 Nonspecific elevation of levels of transaminase and lactic acid dehydrogenase [LDH]; E11.9 Type 2 diabetes mellitus without complications; E80.6 Other disorders of bilirubin metabolism; E87.6 Hypokalemia; K31.9 Disease of stomach and duodenum, unspecified; K21.9 Gastro-esophageal reflux disease without esophagitis; K44.9 Diaphragmatic hernia without obstruction or gangrene; Z60.2 Problems related to living alone; R16.2 Hepatomegaly with splenomegaly, not elsewhere classified; E11.65 Type 2 diabetes mellitus with hyperglycemia; R59.1 Generalized enlarged lymph nodes; Z95.0 Presence of cardiac pacemaker; Z68.27 Body mass index [BMI] 27.0-27.9, adult; Z85.038 Personal history of other malignant neoplasm of large intestine; Z90.49 Acquired absence of other specified parts of digestive tract; Z59.0 Homelessness; Z92.21 Personal history of antineoplastic chemotherapy; Z79.899 Other long term (current) drug therapy; Z87.440 Personal history of urinary (tract) infections; Z87.11 Personal history of peptic ulcer disease; Z91.81 History of falling
CPT/HCPCS: 36415; 36600; 47534; 71045; 74176; 74177; 74181; 76700; 80048; 80076; 80305; 82140; 82375; 82805; 82962; 83036; 83605; 83880; 84484; 85027; 86301; 93005; 93970; 96360; 96361; 97161; 99285; C1725; C1769; C1893; J0330; J0360; J1815; J2250; J2270; J2405; J2543; J2704; J2765; J3010; J3480; J3490; J7040; J7042; J7060; J7070; P9041; Q9967